=== PATIENT | male | born 1940 | race Caucasian/White ===

== ENCOUNTER 2024-09-30 05:55 | Day surgery (SDC) | payer MEDICARE, BC ==
[2024-09-27 11:39] VITALS: BP 135/58
[~2024-09-30] VITALS: Ht 177.8 cm; Wt 88.6 kg
[~2024-09-30 05:55] MED LIST: ASPIRIN EC81 MG PO; ATENOLOL25 MG PO; GABAPENTIN100 MG PO; IRON240 MG PO; LACTATED RINGER'S 1,000 ML IV SCH; LIPITOR80 MG PO; LOSARTAN POTAS100 MG PO; LOSARTAN-HCTZ1 EAC1 PO; LOSARTAN-HCTZ1 EAC2 PO; LOW DOSE ASPIRI81 MG PO; MAGNESIUM CITR125 MG PO; METOPROLOL SUCC50 MG PO; NORVASC5 MG PO; PRAVASTATIN SOD20 MG PO; TOPROL XL100 MG PO; ZYRTEC10 M3 PO; ZYRTEC10 MG PO
[2024-09-30 06:34] VITALS: BP 137/70
[2024-09-30] MEDS ORDERED: LIDOCAINE HCL 1% 5 ML SDV INJ ONE (07:00)
[2024-09-30] MEDS ORDERED: mitoMYcin 40 MG/20 ML VIAL BLADIN ONE (07:00)
[2024-09-30] MEDS ORDERED: IBLOOD GLUCOSE TEST STRIP 1 EA TEST VI PRN ×2 (07:00→09:15)
[2024-09-30] MEDS ORDERED: CEFAZOLIN SODIUM 2 GM/20 ML SYR IV SCH (07:00)
[2024-09-30] MEDS ORDERED: LIDOCAINE HCL 2% 5 ML SDV ONE (07:08)
[2024-09-30] MEDS ORDERED: propofoL 200 MG/20 ML VIAL ONE (07:08)
[2024-09-30] MEDS ORDERED: fentaNYL citrate 100 MCG/2 ML VIAL ONE (07:32)
[2024-09-30] MEDS ORDERED: ROCURONIUM BROMIDE 50 MG/5 ML SYR ONE ×2 (07:32→08:40)
[2024-09-30] MEDS ORDERED: MORPHINE SULFATE 15 MG TABCR PO PRN (07:45)
[2024-09-30] MEDS ORDERED: HYDROmorphone HCL 1 MG/ML SYR IV PRN ×2 (07:45→09:15)
[2024-09-30] MEDS ORDERED: OXYCODONE/APAP 5/325 TAB PO PRN (07:45)
[2024-09-30] MEDS ORDERED: ondansetron HCL 4 MG/2 ML VIAL IV PRN ×2 (07:45→09:15)
[2024-09-30] MEDS ORDERED: HYOSCYAMINE SULFATE 0.375 MG TAB.ER.12H PO PRN (07:45)
[2024-09-30] MEDS ORDERED: DEXAMETHASONE SOD PHOS 4 MG/ML VIAL ONE ×2 (08:01)
[2024-09-30] MEDS ORDERED: ePHEDrine sulfate 50 MG/ML AMP ONE (08:03)
[2024-09-30] MEDS ORDERED: iopamidoL 30 ML VIAL ONE (08:27)
[2024-09-30] MEDS ORDERED: ondansetron HCL 4 MG/2 ML VIAL ONE (08:42)
[2024-09-30] MEDS ORDERED: ACETAMINOPHEN 1,000 MG/100 ML VIAL ONE (08:42)
[2024-09-30] MEDS ORDERED: SUGAMMADEX SODIUM 200 MG/2 ML ML ONE (08:54)
[2024-09-30] MEDS ORDERED: LACTATED RINGER'S 1,000 ML IV ONE (08:56)
[2024-09-30] MEDS ORDERED: NALOXONE HCL 0.4 MG SYR IV PRN (09:15)
[2024-09-30] MEDS ORDERED: fentaNYL citrate 50 MCG/ML SDV IV PRN (09:15)
[2024-09-30] MEDS ORDERED: droPERidol 5 MG/2 ML VIAL IV PRN (09:15)
--- NOTE | 2024-09-30 09:20 | NUR ---
09/30/24 0920 Kareen Mckinley 0911-PATIENT ARRIVED TO [facility] 6L MASK RR EVEN ORAL AIRWAY IN PLACE. SR HR 60'S. IVF INFUSING. CATHETER IN PLACE PATIENT LAYING ON BACK.CHIQUIS RAUSCH AT BEDSIDE REMOVED ORAL AIRWAY AT 0912. 0915-PATIENT REACTIVE TO VERBAL STIMULI DENIES PAIN OR NAUSEA. REPOSITIONED TO LEFT SIDE PILLOW PLACED BEHIND. . SR HR 60'S IVF INFUSING. CLOSES EYES.
[2024-09-30 09:45] VITALS: BP 130/65
--- NOTE | 2024-09-30 10:15 | NUR ---
0930-PT ARRIVED BACK TO DS AAOX3, ANSWERING QUESTIONS APPROPRIATELY, AND ABLE TO MAKE HIS NEEDS KNOWN. PT ON R SIDE AND TIME TO ROTATE TO STOMACH. SURGICAL SITE VISUALIZED WITH COLLECTION TELLER AND THEN PT ASSISTED IN TURNING ONTO STOMACH X 15 MINS. REPORT RECEIVED FROM COLLECTION TELLER. MITOMYCIN TO BE DRAINED AT 1000. VS TAKEN. IV SITE ASSESSED. PT DENIES PAIN OR NAUSEA WHEN ASKED. PT PROVIDED WITH ICE WATER AND APPLESUACE. BED IN LOW POSITION, WHEELS LOCKED, CALL LIGHT WITHIN PT REACH. ALL QUESTIONS ANSWERED. 1000-PT ASSISTED IN TURNING OVER ONTO BACK. MITOMYCIN DRAINED FROM BLADDER IN TO TILLMAN DRAINAGE BAG PER POLICY. APPROX 100ML OF MITOMYCIN MIXED WITH BLOOD TINGED URINE DRAINED FROM BLADDER. DRAINAGE SYSTEM DISPOSED OF PER POLICY AND NEW DRAIANGE BAG PLACED. PT CONT TO DENY PAIN OR NAUSEA WHEN ASKED. CATH SECURE PLACED. PT SITTING UP EATING AND DRINKING. ALL QUESTIONS ANSWERED. CALL LIGHT WTIHIN PT REACH.
[2024-09-30 10:45] VITALS: BP 132/58
--- NOTE | 2024-09-30 11:15 | NUR ---
1045-INTO PTS ROOM FOR ROUTINE REASESSMENT. VS TAKEN. IV SITE ASSESSED AND SL'D. PT CONT TO DENY PAIN OR NAUSEA WHEN ASKED AND IS TAKING PO FLUIDS AND FOOD WELL W/I ISSUES NOTED OR REPORTED. PT CALLING TO COME SIT WITH HIS, HE WOULD LIKE PRESENT FOR DC EDUCATION. TILLMAN PATENT AND DRAINING BLOOD TINGED URINE TO GRAVITY. SURGICAL SITE VISUALIZED. SCANT AMT OF BLEEDING SEEN FROM URETHRA. CATH CARE PROVIDED. BED IN LOW POSITION. WHEELS LOCKED. BILAT RAILS IN PLACE. ALL QUESTIONS ANSWERED. CALL LIGHT WITHIN PT REACH. 1115- ARRIVED AND AT PTS BEDSIDE. PT ASSISTED IN DRESSING LB AND SHOWN HOW TO POSITION CATHTER TUBING WITH DRESSING, ECT. ASSISTED PT WITH DRESSING UPPER BODY. CALL LIGHT AND PERSONAL BELONGINGS WITHIN PT REACH.
[2024-09-30 11:45] VITALS: BP 132/65
[2024-09-30] MEDS ORDERED: SEVOFLURANE 250 ML BTL INH ONE (12:11)
--- NOTE | 2024-09-30 12:30 | NUR ---
1145-INTO PTS ROOM FOR ROUTINE REASSESSMENT. VS TAKEN. IV SITE ASSESSED. PT CONT TO DENY PAIN OR NAUSEA WHEN ASKED. SURGICAL SITE VISUALIZED AND NO FURTHER DRAIANGE NOTED FROM URETHRA. PTS AT BEDSIDE. ICE WATER REFILLED. ALL QUESTIONS ANSWERED. BED IN LOW POSITION, WHEELS LOCKED. CALL LIGHT WITHIN PT REACH. 1215-INTO PTS ROOM FOR DISCHARGE TEACHING. PT PROVIDED VERBAL AND WRITTEN DISCHARGE EDUCATION WELL HANDS ON TEACHING IN REGARDS TO EMPTING CATH DRAINAGE BAG AND CHANGING FROM OVERNIGHT DRAINAGE BAG TO LEG BAG. PT PROVIDED WITH PATIENT HANDOUT REGARDING SAFETY WITH HANDING OF BODILY FLUIDS AFTER INTRAVESICAL MITOMYCIN. PRESENT FOR DC EDUCATION. PT PROVIDED WITH EXTRA STAT LOCK, LEG BAG, AND GRADUATED CYLINDER FROM EMPTYING CATHETER BAG. ALL QUESTIONS ANSWERED. BOTH PT AND VERBALIZE UNDERSTANDING. 1230- LEFT TO PULL CAR AROUND TO FRONT OF HOSPITAL. IV REMOVED. TIP APPEARS INTACT. PRESSURE DRSG APPLIED WITH GAUZE AND COBAN.
--- NOTE | 2024-09-30 12:35 | NUR ---
PT DISCHARGED FROM DS VIA WC TO PASSENGER SIDE OF WIFES VEHICLE. ALL PERSONAL BELONGINGS TAKEN WITH PT.
--- NOTE | 2024-10-04 11:59 | PATH ---
[facility] [address] [place], [place] [address] Signed SPECIMEN(S): A BLADDER TUMOR SPECIMEN SOURCE: A. BLADDER TUMOR CLINICAL HISTORY: Bladder tumor FINAL PATHOLOGIC DIAGNOSIS: Bladder, biopsy: - Noninvasive high-grade papillary urothelial carcinoma, see synoptic report URINARY BLADDER: Biopsy and Transurethral Resection of Bladder Tumor (TURBT) SPECIMEN Procedure: Transurethral resection of bladder (TURBT) TUMOR Tumor Site: Not specified Histologic Type: Papillary urothelial carcinoma, noninvasive Histologic Grade: High-grade Tumor Extent: Noninvasive papillary carcinoma Lymphatic and / or Vascular Invasion: Not identified Tumor Configuration: Papillary Muscularis Propria (detrusor muscle): Not identified COMMENT: A diagnostic alert is initiated by Dr. Del Angel on 10/04/24. As part of [facility] Quality Improvement Program, this case was reviewed by another member of our pathology staff. [facility] MICROSCOPIC EXAMINATION: Histologic sections of all submitted blocks are examined by light microscopy. These findings, together with the gross examination, support the pathologic diagnosis. GROSS DESCRIPTION: The specimen, labeled and designated "Sanya Prasad, bladder tumor per requisition," is received in formalin and consists of a 2.8 x 1.8 x 0.3 cm aggregate of bonds-white tissue fragments. The specimen is entirely submitted in cassette A1. AA (under the direct supervision of a pathologist) The Gross Description was prepared using a voice recognition system. The report PATIENT NAME: KAYLENVIKY TAYLOR SARA PATHOLOGY DATE OF : 44 REPORT #: [id number] PHYSICIAN: HO JUDGE PCP: ABBEY MCFARLANE PAC REPORT IS CONFIDENTIAL AND NOT TO BE RELEASED WITHOUT AUTHORIZATION [facility] [address] [facility] [place], [place] [address] Signed was reviewed for accuracy; however, sound-alike word errors, addition and/or deletions may occur. If there is any question about this report, please contact Client Services. ADDITIONAL NOTES: Immunohistochemical and/or in situ hybridization studies if performed in this case included appropriate positive controls that reacted as expected. This test was developed and its performance characteristics determined by [facility] It has not been cleared or approved by the U.S. Food and Drug Administration. The FDA has determined that such clearance or approval is not necessary. This test is used for clinical purposes. It should not be regarded as investigational or for research. [facility] is certified under the Clinical Laboratory Improvement Amendments of 1988 (CLIA) as qualified to perform high complexity clinical laboratory testing. PERFORMING LABORATORY: Technical component was performed by [facility] [address] [place] [id number] (CLIA# [id number]). Professional interpretation was performed by [facility] [address] [place] [phone] [id number] Diagnostician: Gonzalo Del Angel MD Pathologist Electronically Signed 10/04/2024 Copies: ~ PATIENT NAME: VIKY PRASAD PATHOLOGY DATE OF : 44 REPORT #: [id number] PHYSICIAN: HO JUDGE PCP: ABBEY MCFARLANE PAC REPORT IS CONFIDENTIAL AND NOT TO BE RELEASED WITHOUT AUTHORIZATION
== END 2024-09-30 12:35 | disposition home or self-care (01) ==
LOC: DS 05:55
PROVIDERS: ATTEND Urology
PROC: 0TBB8ZZ Excision of Bladder, Via Natural or Artificial Opening Endoscopic (ICD-10-PCS; principal; 2024-09-30 07:30)
DX: C67.9 Malignant neoplasm of bladder, unspecified (principal); N32.89 Other specified disorders of bladder; R31.0 Gross hematuria; I10 Essential (primary) hypertension; I25.10 Atherosclerotic heart disease of native coronary artery without angina pectoris; Z79.82 Long term (current) use of aspirin; Z79.899 Other long term (current) drug therapy; Z95.1 Presence of aortocoronary bypass graft
CPT/HCPCS: 00912; 74420; J0131; J0690; J1100; J2003; J2405; J2704; J3010; J3490; J7121; J9280; Q9967

== ENCOUNTER 2024-12-09 13:14 | Emergency (ER) | payer MEDICARE, BC ==
[~2024-12-09] VITALS: Ht 177.8 cm; Wt 88.6 kg
--- OUTSIDE RECORDS SUMMARY | ~2024-12-09 | XMS | Continuity of Care Document ---
Demographics + + + | Address | [address] | | | [place] [address] | + + + | Preferred Language | Unknown | + + + | Marital Status | | + + + | Sabianist Affiliation | Unknown | + + + | Race | Unknown | + + + | Ethnic Group | Unknown | + + + Author + + + | Author | [facility] | + + + | Organization | [facility] | + + + | Address | [address] | | | [place] [address] | + + + | Phone | | + + + Care Team Providers + + + + | Care Tongue And Groove Machine Setter Name | Role | Phone | + + + + Unavailable | Unavailable | + + + + Allergies No information. Encounters No information. Functional Status No information. Immunizations No information. Medications No information. Problems + + + + | date | description | facility | + + + + | 2024-12-06 14:40 | Rash and other nonspecific | [facility] | | | skin eruption | | + + + + | 2024-12-06 14:40 | Abrasion, right lower leg, | [facility] | | | initial encounter | | + + + + | 2024-12-06 14:40 | Scratched by cat, initial | [facility] | | | encounter | | + + + + Procedures No information. Results/Labs No information. Social History +--------+ + + | date | description | facility | +--------+ + + Vital Signs No information."
[~2024-12-09 13:14] MED LIST changes: -LACTATED RINGER'S 1,000 ML IV SCH
[2024-12-09] MEDS ORDERED: ZITHROMAX250 MG PO (15:23)
[2024-12-09 15:42] VITALS: BP 133/69
== END 2024-12-09 15:36 | disposition home or self-care (01) ==
LOC: ED 13:14
DX: L03.115 Cellulitis of right lower limb (principal); S80.811A Abrasion, right lower leg, initial encounter; I10 Essential (primary) hypertension; E78.00 Pure hypercholesterolemia, unspecified; I25.2 Old myocardial infarction; Z79.82 Long term (current) use of aspirin; Z79.899 Other long term (current) drug therapy; W55.03XA Scratched by cat, initial encounter
CPT/HCPCS: 93971; 99283-25

== ENCOUNTER 2025-01-25 19:54 | Emergency (ER) | payer MEDICARE, BC ==
[~2025-01-25] VITALS: Ht 177.8 cm; Wt 85.0 kg
--- OUTSIDE RECORDS SUMMARY | ~2025-01-25 | XMS | Continuity of Care Document ---
Demographics + + + | Address | [address] | | | [place] [address] | + + + | Preferred Language | Unknown | + + + | Marital Status | | + + + | Church Affiliation | Unknown | + + + | Race | White | + + + | Ethnic Group | Unknown | + + + Author + + + | Author | [facility] | + + + | Organization | [facility] | + + + | Address | [address] | | | [place] [address] | + + + | Phone | | + + + Care Team Providers + + + + | Care Buyer Grain Name | Role | Phone | + [...]
[~2025-01-25 19:54] MED LIST changes: +ZITHROMAX250 MG PO
[2025-01-25 20:31] LABS: BASOPHILS 0.3 % (0.2-1.2); EOSINOPHILS 0.3 % (0.8-7.0); LYMPHOCYTES 20.8 % (21.8-53.1); MCH 30.0 PG (25.7-32.2); MCHC 34.3 g/dL (32.3-36.5); MCV 87.4 fL (79.0-92.2); MONOCYTES 5.5 % (5.3-12.2); NEUTROPHILS 72.6 % (34.0-67.9); RBC 3.90 M/uL (4.63-6.08)
[2025-01-25 20:53] LABS: ALT (SGPT) 29.0 U/L (14-59); AST (SGOT) 28.0 U/L (15-37); GLOMERULAR FILTRATION RATE,EST 48.0 mL/min (>60); PROTEIN, TOTAL 6.4 g/dL (6.4-8.2); UREA NITROGEN 21.0 mg/dL (7-18)
[2025-01-25 21:26] LABS: BLOOD/HGB, URINE LARGE (Negative); KETONE, URINE SMALL (Negative); LEUK ESTERASE, URINE LARGE (negative); NITRITE, URINE POSITIVE (negative)
[2025-01-25 21:30] LABS: EPITHELIAL CELLS, URINE SQUAMOUS 1+ /lpf (0-1+)
[2025-01-25 21:31] LABS: BACTERIA, URINE 4+ /hpf (negative); CASTS, URINE NONE SEEN \\lpf; CRYSTALS, URINE NONE SEEN (0-1+)
[2025-01-25 21:33] LABS: REFLEX CULTURE, URINE Yes (No)
[2025-01-25 22:22] LABS: ABO O; ANTIBODY SCREEN NEGATIVE; RH NEGATIVE
[2025-01-26 00:11] VITALS: BP 131/65
--- NOTE | 2025-01-26 21:46 | EKG ---
[facility] [address] [facility] [place] [address] Signed Sinus bradycardia with 1st degree AV block with premature atrial complexes Otherwise normal ECG When compared with ECG of 27-SEP-2024 11:52, premature atrial complexes are now present Confirmed by Kenroy Cosby MD () on 01/26/2025 9:46:31 PM Electronically Signed By: KENROY COSBY MD 01/26/25 2146 PATIENT NAME: VIKY IRWIN Electrocardiogram DATE OF : 44 PHYSICIAN: KENROY COSBY MD REPORT #: [id number] REPORT IS CONFIDENTIAL AND NOT TO BE RELEASED WITHOUT AUTHORIZATION
== END 2025-01-26 00:09 | disposition home or self-care (01) ==
LOC: ED 19:54
PROVIDERS: Family Medicine
DX: R55 Syncope and collapse (principal); N28.89 Other specified disorders of kidney and ureter; I10 Essential (primary) hypertension; Z79.82 Long term (current) use of aspirin; Z79.899 Other long term (current) drug therapy
CPT/HCPCS: 36415; 74176; 80053; 81001; 83735; 84484; 85025; 86850; 86900; 86901; 87088; 93005; 93010; 99284-25